=== PATIENT | female | born 1965 | race Hispanic/Latino ===

== ENCOUNTER 2019-06-05 20:01 | Emergency (ER) | payer SELFPAY ==
[2019-06-05 21:33] LABS: Absolute Lymphocytes (CBC) 1.7 K/uL (0.7-4.9); Basophils % 0.4 % (0-1.3); Eosinophils % 0.9 % (0-4.4); Hematocrit 40.4 % (36.0-45.0); Lymphocytes % 24.1 % (15.3-44.8); MPV 8.9 fL (7.6-11.3); Monocytes % 6.9 % (3.3-12.3); RBC Red Blood Cell Count 4.61 M/uL (3.86-4.86)
[2019-06-05 21:45] LABS: Protime INR 0.97
[2019-06-05 22:01] LABS: ALT/SGPT 27 U/L (12-78); AST/SGOT 24 U/L (15-37); Albumin 4.7 g/dL (3.4-5.0); Alkaline Phosphatase 111 U/L (45-117); BUN Blood Urea Nitrogen 14 mg/dL (7-18); Bicarbonate 30 mmol/L (21-32); Bilirubin Direct 0.1 mg/dL (0-0.2); Bilirubin Total 0.3 mg/dL (0.2-1.0); Glucose Level 88 mg/dL (74-106); Magnesium 1.9 mg/dL (1.8-2.4); NT PRO-BNP 79 pg/mL (<125); Potassium 3.6 mmol/L (3.5-5.1); Protein, Total 9.2 g/dL (6.4-8.2); Sodium Level 141 mmol/L (136-145); Thyroid Stimulating Hormone 0.887 uIU/mL (0.360-3.740); Troponin (Emerg Dept Use Only) < 0.02 ng/mL (0.0-0.045)
[2019-06-05] MEDS ORDERED: ONDANSETRON 4 MG/2 ML VIAL ONE (22:30)
[2019-06-05] MEDS ORDERED: MORPHINE 2 MG/ML SYR ONE (22:30)
[2019-06-05] MEDS ORDERED: METOPROLOL TARTRATE 5 MG/5 ML INJ IV ONE (22:31)
--- NOTE | 2019-06-05 22:33 | ER ---
Nurse's Notes [facility] Name: Becca Marques Age: 54 yrs Sex: Female : 1965 Arrival Date: 06/05/2019 Time: 20:05 Bed 14 Private MD: Diagnosis: Palpitations. Acute headache Presentation: 06/05 20:11 Presenting complaint: Patient states: Patient reports rapid HR for 1 week with aj headache. Seen at [facility] last week for same complaint. Transition of care: patient was not received from another setting of care. Onset of symptoms was May 31, 2019. Risk Assessment: Do you want to hurt yourself or someone else? Patient reports no desire to harm self or others. Initial Sepsis Screen: Does the patient meet any 2 criteria? No. Patient's initial sepsis screen is negative. Does the patient have a suspected source of infection? No. Patient's initial sepsis screen is negative. Care prior to arrival: None. 20:11 Method Of Arrival: Ambulatory 20:11 Acuity: JUDY 3 aj Triage Assessment: 20:16 General: Appears in no apparent distress. comfortable, Behavior is calm, cooperative, aj appropriate for age. Pain: Complains of pain in face and scalp Pain currently is 2 out of 10 on a pain scale. Neuro: Level of Consciousness is awake, alert, obeys commands, Oriented to person, place, time, situation, Appropriate for age Reports headache. Cardiovascular: Reports palpitations, Capillary refill < 3 seconds in bilateral fingers Patient's skin is warm and dry. Respiratory: Airway is patent Respiratory effort is even, unlabored, Respiratory pattern is regular, symmetrical. Derm: Skin is intact, is healthy with good turgor, Skin is pink, warm \T\ dry. normal. 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 - Social history:: Smoking status: Patient/guardian denies using tobacco. - Ebola Screening: : Patient negative for fever greater than or equal to 101.5 degrees Fahrenheit, and additional compatible Ebola Virus Disease symptoms Patient denies exposure to infectious person Patient denies travel to an Ebola-affected area in the 21 days before illness onset No symptoms or risks identified at this time. Screenin:33 Abuse screen: Denies threats or abuse. Denies injuries from another. Nutritional lp1 screening: No deficits noted. Tuberculosis screening: No symptoms or risk factors identified. Fall Risk None identified. Assessment: 20:45 General: Appears in no apparent distress. Behavior is calm, cooperative, appropriate lp1 for age. Pain: Complains of pain in head Pain does not radiate. Pain currently is 5 out of 10 on a pain scale. Pain began gradually. Neuro: Level of Consciousness is awake, alert, obeys commands, Oriented to person, place, time, situation, Gait is steady, Pupils are PERRLA, Reports headache in entire. Cardiovascular: Reports palpitations, since today, resolved at this time Patient's skin is warm and dry. Respiratory: Respiratory effort is even, unlabored. GI: No signs and/or symptoms were reported involving the gastrointestinal system. : No signs and/or symptoms were reported regarding the genitourinary system. EENT: No signs and/or symptoms were reported regarding the EENT system. Derm: Skin is pink, warm \T\ dry. Musculoskeletal: No deficits noted. 21:45 Reassessment: Patient appears in no apparent distress at this time. Patient is alert, lp1 oriented x 3, equal unlabored respirations, skin warm/dry/pink. Patient states feeling better. 22:20 Reassessment: Patient appears in no apparent distress at this time. Patient is alert, lp1 oriented x 3, equal unlabored respirations, skin warm/dry/pink. Patient states continued headache, 6/10 on pain scale. 23:15 Reassessment: Patient is alert, oriented x 3, equal unlabored respirations, skin lp1 warm/dry/pink. Patient states some improvement to headache at this time Patient states feeling better. Vital Signs: 20:16 BP 150 / 91; Pulse 107; Resp 16; Temp 98.6; Pulse Ox 98% on R/A; Weight 61.23 kg; aj Height 4 ft. 6 in. (137.16 cm); 20:40 BP 168 / 100; Pulse 109; Resp 19; Pulse Ox 99% on R/A; lp1 21:00 BP 148 / 84; Pulse 97; Resp 20; Pulse Ox 99% on R/A; lp1 21:30 BP 141 / 92; Pulse 89; Resp 14; Pulse Ox 98% on R/A; lp1 22:00 BP 155 / 92; Pulse 96; Resp 19; Pulse Ox 98% on R/A; lp1 22:30 BP 146 / 85; Pulse 89; Resp 20; Pulse Ox 98% on R/A; lp1 23:00 BP 165 / 88; Pulse 108; Resp 20; Temp 98.3(O); Pulse Ox 97% on R/A; Pain 3/10; lp1 23:48 BP 147 / 78; Pulse 90; Resp 16; Temp 98.6; Pulse Ox 99% on R/A; ak1 20:16 Body Mass Index 32.55 (61.23 kg, 137.16 cm) aj ED Course: 20:05 Patient arrived in ED. es 20:13 Triage completed. aj 20:16 Arm band placed on right wrist. Patient placed in an exam room. aj 20:18 Marty Ford MD is Attending Physician. pkl 20:45 Patient has correct armband on for positive identification. Placed in gown. Bed in low lp1 position. Call light in reach. laboratory monitor on. Pulse ox on. NIBP on. 20:45 Patient maintains SpO2 saturation greater than 95% on room air. lp1 20:51 Merle Munoz, RN is Primary Nurse. lp1 21:14 XRAY Chest (1 view) In Process Unspecified. EDMS 21:26 EKG done, by ED staff, reviewed by Marty Ford MD. Inserted saline lock: 22 gauge in right ag4 antecubital area, using aseptic technique. Blood collected. 22:32 Jake Aleman MD is Referral Physician. pkl 23:48 No provider procedures requiring assistance completed. IV discontinued, intact, ak1 bleeding controlled, No redness/swelling at site. Pressure dressing applied. Administered Medications: 21:45 Drug: NS 0.9% 1000 ml Route: IV; Rate: 100 ml/hr; Site: right antecubital; lp1 22:30 Drug: morphine 2 mg Route: IVP; Site: right antecubital; lp1 22:30 Follow up: Response: Pain is decreased lp1 22:30 Drug: Zofran 4 mg Route: IVP; Site: right antecubital; lp1 23:30 Follow up: Response: No adverse reaction lp1 22:40 Not Given (BP 148/84 HR 97): Lopressor 5 mg IVP once; Hold for SBP <100 or HR <60. lp1 Outcome: 22:33 Discharge ordered by . eduarda 23:49 Discharged to home ambulatory, with family. ak1 23:49 Condition: good 23:49 Discharge instructions given to patient, family, Instructed on discharge instructions, follow up and referral plans. no drinking with medication, no driving heavy equipment, medication usage, Demonstrated understanding of instructions, follow-up care, medications, Prescriptions given X 1. 23:56 Patient left the ED. ak1 Signatures: Dispatcher [employer] Elvie Jiménez RN RN aj Lam, Pin, MD MD pkl Salyer, Edna es Pena, Laura, RN RN lp1 Rosio Rajan RN RN ak1 Carlos Dominguez [email or web address]
--- NOTE | 2019-06-05 22:34 | EDPHYS ---
Physician Documentation [facility] Name: Becca Marques Age: 54 yrs Sex: Female : 1965 Arrival Date: 06/05/2019 Time: 20:05 Bed 14 Private MD: ED Physician Marty Ford HPI: 06/05 20:49 This 54 yrs old Female presents to ER via Ambulatory with complaints of pkl Palpitations, Chest Pain, High Blood Pressure, Anxiety, High Blood Sugar. 20:49 The patient presents with a history of heart racing. Onset: The symptoms/episode pkl began/occurred just prior to arrival. Associated signs and symptoms: Pertinent positives: anxiety, headache. The patient has been recently seen by a physician: Seen at [facility] ER 1 week for same complaints.. 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 - Social history:: Smoking status: Patient/guardian denies using tobacco. - Ebola Screening: : Patient negative for fever greater than or equal to 101.5 degrees Fahrenheit, and additional compatible Ebola Virus Disease symptoms Patient denies exposure to infectious person Patient denies travel to an Ebola-affected area in the 21 days before illness onset No symptoms or risks identified at this time. ROS: 20:49 Eyes: Negative for injury, pain, redness, and discharge, ENT: Negative for injury, pkl pain, and discharge, Neck: Negative for injury, pain, and swelling. 20:49 Cardiovascular: Positive for palpitations. 20:49 Respiratory: Negative for cough, shortness of breath. 20:49 Abdomen/GI: Negative for abdominal pain, nausea, vomiting, and diarrhea. 20:49 Back: Negative for acute changes. 20:49 : Negative for urinary symptoms. 20:49 MS/extremity: Negative for acute changes. 20:49 Skin: Negative for rash. 20:49 Neuro: Positive for headache. Exam: 20:49 Head/Face: Normocephalic, atraumatic. Eyes: Pupils equal round and reactive to light, pkl extra-ocular motions intact. Lids and lashes normal. Conjunctiva and sclera are non-icteric and not injected. Cornea within normal limits. Periorbital areas with no swelling, redness, or edema. ENT: Nares patent. No nasal discharge, no septal abnormalities noted. Tympanic membranes are normal and external auditory canals are clear. Oropharynx with no redness, swelling, or masses, exudates, or evidence of obstruction, uvula midline. Mucous membranes moist. Neck: Trachea midline, no thyromegaly or masses palpated, and no cervical lymphadenopathy. Supple, full range of motion without nuchal rigidity, or vertebral point tenderness. No Meningismus. Chest/axilla: Normal chest wall appearance and motion. Nontender with no deformity. No lesions are appreciated. 20:49 Cardiovascular: Rate: tachycardic, actual rate is 118 bpm. 20:49 ECG was reviewed by the Attending Physician. 20:49 Respiratory: the patient does not display signs of respiratory distress, Respirations: normal, Breath sounds: are clear throughout. 20:49 Abdomen/GI: Bowel sounds: normal, Palpation: abdomen is soft and non-tender, in all quadrants. 20:49 Back: Exam negative for acute changes. 20:49 : Exam negative for acute changes. 20:49 Musculoskeletal/extremity: Exam is negative for acute changes. 20:49 Skin: Exam negative for rash. 20:49 Neuro: Orientation: is normal, Mentation: is normal, Cranial nerves: grossly normal, Motor: is normal. Vital Signs: 20:16 BP 150 / 91; Pulse 107; Resp 16; Temp 98.6; Pulse Ox 98% on R/A; Weight 61.23 kg; aj Height 4 ft. 6 in. (137.16 cm); 20:40 BP 168 / 100; Pulse 109; Resp 19; Pulse Ox 99% on R/A; lp1 21:00 BP 148 / 84; Pulse 97; Resp 20; Pulse Ox 99% on R/A; lp1 21:30 BP 141 / 92; Pulse 89; Resp 14; Pulse Ox 98% on R/A; lp1 22:00 BP 155 / 92; Pulse 96; Resp 19; Pulse Ox 98% on R/A; lp1 22:30 BP 146 / 85; Pulse 89; Resp 20; Pulse Ox 98% on R/A; lp1 23:00 BP 165 / 88; Pulse 108; Resp 20; Temp 98.3(O); Pulse Ox 97% on R/A; Pain 3/10; lp1 23:48 BP 147 / 78; Pulse 90; Resp 16; Temp 98.6; Pulse Ox 99% on R/A; ak1 20:16 Body Mass Index 32.55 (61.23 kg, 137.16 cm) aj MDM: 20:18 Patient medically screened. pkl 22:29 Data reviewed: vital signs, nurses notes, lab test result(s), EKG, radiologic studies, pkl plain films. ED course: Patient said she is feeling better. Advised to follow up with Dr. Aleman ( [facility] ) next week for further evaluations. Patient and family understood instructions.. 06/05 20:48 Order name: Basic Metabolic Panel; Complete Time: 22:26 pkl 06/05 20:48 Order name: CBC with Diff; Complete Time: 22:01 pkl 06/05 20:48 Order name: LFT's; Complete Time: 22:26 pkl 06/05 20:48 Order name: Magnesium; Complete Time: 22:26 pkl 06/05 20:48 Order name: NT PRO-BNP; Complete Time: 22:26 pkl 06/05 20:48 Order name: PT-INR; Complete Time: 22:01 pkl 06/05 20:48 Order name: Troponin (emerg Dept Use Only); Complete Time: 22:26 pkl 06/05 20:48 Order name: XRAY Chest (1 view) pkl 06/05 20:48 Order name: EKG; Complete Time: 20:50 pkl 06/05 20:48 Order name: TSH; Complete Time: 22:26 pkl 06/05 20:48 Order name: Cardiac monitoring; Complete Time: 20:52 pkl 06/05 20:48 Order name: EKG - Nurse/Tech; Complete Time: 20:51 pkl 06/05 20:48 Order name: IV Saline Lock; Complete Time: 21:26 pkl 06/05 20:48 Order name: Labs collected and sent; Complete Time: 21: pkl 06/05 20:48 Order name: O2 Per Protocol; Complete Time: 20:52 pkl 06/05 20:48 Order name: O2 Sat Monitoring; Complete Time: 20:52 pkl Administered Medications: 21:45 Drug: NS 0.9% 1000 ml Route: IV; Rate: 100 ml/hr; Site: right antecubital; lp1 22:30 Drug: morphine 2 mg Route: IVP; Site: right antecubital; lp1 22:30 Follow up: Response: Pain is decreased lp1 22:30 Drug: Zofran 4 mg Route: IVP; Site: right antecubital; lp1 23:30 Follow up: Response: No adverse reaction lp1 22:40 Not Given (BP 148/84 HR 97): Lopressor 5 mg IVP once; Hold for SBP <100 or HR <60. lp1 Disposition: 06/05/19 22:33 Discharged to Home. Impression: Palpitations. Acute headache. - Condition is Stable. - Prescriptions for Ultram 50 mg Oral Tablet - take 1 tablet by ORAL route every 8 hours As needed; 15 tablet. - Medication Reconciliation Form, Thank You Letter, Antibiotic Education, Prescription Opioid Use form. - Follow up: Jake Aleman MD; When: 2 - 3 days; Reason: Re-evaluation by your physician. - Problem is new. - Symptoms have improved. Signatures: Dispatcher [employer] EDElvie Swift RN RN aj Lam, Pin, MD MD pkl Merle Munoz RN RN lp1 Rosio Rajan RN RN ak1 Corrections: (The following items were deleted from the chart) 23:56 22:33 06/05/2019 22:33 Discharged to Home. Impression: Palpitations. Acute headache. ak1 Condition is Stable. Forms are Medication Reconciliation Form, Thank You Letter, Antibiotic Education, Prescription Opioid Use. Follow up: Jake Aleman; When: 2 - 3 days; Reason: Re-evaluation by your physician. Problem is new. Symptoms have improved. pkl
--- NOTE | 2019-06-06 07:19 | EKG ---
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
--- NOTE | 2019-06-06 11:11 | RAD REPORT ---
EXAM DESCRIPTION: RAD - Chest Single View - 06/05/2019 9:12 pm CLINICAL HISTORY: PALPITATIONS Chest pain. COMPARISON: No comparisons FINDINGS: Portable technique limits examination quality. Mild subsegmental atelectasis suspected right lung base. The lungs are otherwise clear. The heart is upper limit of normal in size. No displaced fractures.
== END 2019-06-05 23:56 | disposition home or self-care (01) ==
LOC: ER 20:01
DX: R51 Headache (principal); I10 Essential (primary) hypertension; F41.9 Anxiety disorder, unspecified
CPT/HCPCS: 36415; 71045; 80048; 80076; 83735; 83880; 84443; 84484; 85025; 85610; 93005; 96374; 96375; 99285; J2270; J2405